=== PATIENT | female | born 1980 | race Caucasian/White ===

== ENCOUNTER 2021-03-26 09:59 | Day surgery (SDC) | payer SELFPAY ==
[~2021-03-26] VITALS: Ht 182.9 cm; Wt 83.7 kg
[2021-03-26] MEDS ORDERED: LINZESS145CAP PO (10:23)
[2021-03-26] MEDS ORDERED: PEPCID 20MG TAB20 MG PO (10:23)
[2021-03-26 10:26] VITALS: BP 115/59; PULSE 73; TEMP 97.5
[2021-03-26 12:20] VITALS: BP 113/78; PULSE 78; TEMP 97
[2021-03-26 12:35] VITALS: BP 115/87; PULSE 65
[2021-03-26 12:50] VITALS: BP 116/76; PULSE 64
--- NOTE | 2021-03-26 13:05 | NUR ---
1220- Pt returns from endo procedure via cart to [facility]. Pt ambulates from cart to recliner with RN assist. Monitors on and alarms set. Call light within reach. Report received from OBIE Bonds. Pt alert and oriented. Pt requests orange juice, refused food. Pt denies any pain or nausea. 1235- Pt taking drink well. No complications noted. 1250-Dr in to speak with patient. Discharge instructions given to pt. All questions answered to pt satisfaction. Handed to pt education materials and discharge information. 1305- Pt transferred out of the hospital via wheelchair, to private vehicle driven by boyfriend.
== END 2021-03-26 13:05 | disposition home or self-care (01) ==
LOC: SDCO 09:59
DX: K21.00 Gastro-esophageal reflux disease with esophagitis, without bleeding (principal); K44.9 Diaphragmatic hernia without obstruction or gangrene; K59.00 Constipation, unspecified; R11.2 Nausea with vomiting, unspecified; R14.0 Abdominal distension (gaseous); Z79.84 Long term (current) use of oral hypoglycemic drugs; Z79.899 Other long term (current) drug therapy; Z87.891 Personal history of nicotine dependence
CPT/HCPCS: J2704; J7120